=== PATIENT | female | born 2000 ===

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

== ENCOUNTER 2019-02-15 10:26 | Inpatient (IN) | payer OTHER ==
[~2019-02-15] VITALS: Ht 154.9 cm; Wt 56.2 kg
[2019-02-15] MEDS ORDERED: PRENATAL TABLE1 EAC1 PO (11:13)
== END 2019-02-18 13:26 | disposition home or self-care (01) | DRG 832 ==
LOC: OBS/DEL 10:26 → OB/GYN 13:31 → LDR 13:31 → OB/GYN 02-17 13:51
PROVIDERS: ADMIT Obstetrics & Gynecology
PROC: 4A1HXFZ Monitoring of Products of Conception, Cardiac Rhythm, External Approach (ICD-10-PCS; principal; 2019-02-15)
PROC: BY4CZZZ Ultrasonography of Second Trimester, Single Fetus (ICD-10-PCS; 2019-02-15)
DX: O99.012 Anemia complicating pregnancy, second trimester (principal); O23.32 Infections of other parts of urinary tract in pregnancy, second trimester; O46.8X2 Other antepartum hemorrhage, second trimester; Z3A.20 20 weeks gestation of pregnancy

== ENCOUNTER 2019-05-01 16:33 | Inpatient (IN) | payer OTHER ==
[~2019-05-01] VITALS: Ht 157.5 cm; Wt 64.4 kg
[~2019-05-01 16:33] MED LIST: PRENATAL TABLE1 EAC1 PO
== END 2019-05-15 11:59 | DRG 833 ==
LOC: LDR 16:33 → OB/GYN 05-03 11:16
PROVIDERS: ADMIT Obstetrics & Gynecology
PROC: 4A1HXCZ Monitoring of Products of Conception, Cardiac Rate, External Approach (ICD-10-PCS; principal; 2019-05-01)
PROC: BY4FZZZ Ultrasonography of Third Trimester, Single Fetus (ICD-10-PCS; 2019-05-01)
PROC: BY4FZZZ Ultrasonography of Third Trimester, Single Fetus (ICD-10-PCS; 2019-05-10)
DX: O60.03 Preterm labor without delivery, third trimester (principal); O99.013 Anemia complicating pregnancy, third trimester; D64.89 Other specified anemias

== ENCOUNTER 2019-06-23 06:58 | Inpatient (IN) | payer OTHER ==
[~2019-06-23] VITALS: Ht 157.5 cm; Wt 2.7 kg
[2019-06-23] MEDS ORDERED: PRENATAL TABLE1 EAC3 (07:51)
== END 2019-06-26 18:29 | disposition home or self-care (01) | DRG 788 ==
LOC: LDR 06:58 → O/R 06:58 → OB/GYN 06:58 → O/R 09:32 → OB/GYN 11:53
PROVIDERS: ADMIT Obstetrics & Gynecology
PROC: 4A033R1 Measurement of Arterial Saturation, Peripheral, Percutaneous Approach (ICD-10-PCS; 2019-06-23)
PROC: 4A1HXCZ Monitoring of Products of Conception, Cardiac Rate, External Approach (ICD-10-PCS; 2019-06-23)
PROC: 10D00Z1 Extraction of Products of Conception, Low, Open Approach (ICD-10-PCS; principal; 2019-06-23 09:00)
DX: O82 Encounter for cesarean delivery without indication (principal); Z3A.39 39 weeks gestation of pregnancy; Z37.0 Single live birth